=== PATIENT | female | born 1935 | race Caucasian/White ===

== ENCOUNTER 2024-04-13 04:17 | Emergency (ER) | payer OTHER ==
[~2024-04-13] VITALS: Ht 154.9 cm; Wt 49.0 kg
[2024-04-13] MEDS ORDERED: HYDROMORPHONE 1 MG/1 ML DISP.SYRIN ONE (04:43)
[2024-04-13] MEDS ORDERED: ONDANSETRON 4 MG/2 ML VIAL ONE (04:43)
[2024-04-13] MEDS: HYDROMORPHONE 1 MG/1 ML DISP.SYRIN IV ONE (04:57)
[2024-04-13] MEDS: ONDANSETRON 4 MG/2 ML VIAL IV ONE (04:57)
[2024-04-13 05:20] LABS: BASOPHILS % (AUTO) 0.2 % (0.0-2.0); EOSINOPHILS % (AUTO) 0.2 % (0.0-7.0); HEMATOCRIT 42.6 % (31.2-41.9); HEMOGLOBIN 14.8 g/dL (10.9-14.3); LYMPHOCYTES # (AUTO) 0.8 K/uL (0.8-4.8); LYMPHOCYTES % (AUTO) 5.8 % (20.5-51.5); MEAN CORPUSCULAR HEMOGLOBIN 31.4 uug (24.7-32.8); MEAN CORPUSCULAR HGB CONC 35 g/dL (32.3-35.6); MEAN CORPUSCULAR VOLUME 90.6 fL (75.5-95.3); MONOCYTES # (AUTO) 0.8 K/uL (0.1-1.30); MONOCYTES % (AUTO) 5.8 % (0.0-11.0); NEUTROPHILS # (AUTO) 12.7 K/uL (1.8-8.9); PLATELET COUNT (AUTO) 239 K/uL (179-408); WHITE BLOOD COUNT (AUTO) 14.5 K/uL (3.8-11.8)
[2024-04-13 05:30] LABS: CALCIUM 9.5 mg/dL (8.5-10.1); CARBON DIOXIDE 27 mmol/L (21-32); CHLORIDE 105 mmol/L (98-107); CREATININE 0.8 mg/dL (0.6-1.3); GLUCOSE 118 mg/dL (74-106); POTASSIUM 3.9 mmol/L (3.5-5.1); SODIUM SERUM 141 mmol/L (136-145); UREA NITROGEN, BLOOD 21 mg/dL (7-18)
[2024-04-13 05:35] LABS: DIFFERENTIAL COMMENT 1
[2024-04-13 05:43] LABS: ALANINE AMINOTRANSFERASE 44 U/L (14-59); ALBUMIN 3.8 g/dL (3.4-5.0); ALKALINE PHOSPHATASE 101 U/L (50-136); ASPARTATE AMINOTRANSFERASE 24 U/L (15-37); BILIRUBIN,DIRECT 0.1 mg/dL (0.0-0.2); BILIRUBIN,TOTAL 0.6 mg/dL (0.2-1.0); NT-PRO BNP 617 pg/mL (0-125)
[2024-04-13] MEDS ORDERED: MORPHINE SULFATE 2 MG/1 ML DISP.SYRIN ONE (06:59)
[2024-04-13] MEDS: MORPHINE SULFATE 2 MG/1 ML DISP.SYRIN IV ONE (07:02)
[2024-04-13 08:45] LABS: *BILIRUBIN,URIN NEGATIVE (NEGATIVE); *CLARITY,URINE CLEAR (CLEAR); *COLOR,URINE YELLOW (YELLOW); *KETONES,URINE NEGATIVE (NEGATIVE); *PROTEIN,URINE NEGATIVE (NEGATIVE); *UROBILINOGEN,URINE 0.2 E.U./dl (NORMAL); LEUKOCYTE ESTERASE ,URINE NEGATIVE (NEGATIVE); NITRITE, URINE NEGATIVE (NEGATIVE); UGLUCOSE NEGATIVE (NEGATIVE)
[2024-04-13 08:52] LABS: *BLOOD, URINE TRACE (NEGATIVE)
[2024-04-13 09:12] LABS: BACTERIA,URINE FEW /HPF (NONE SEEN); CALCIUM OXALATE CRYSTALS,UR FEW /HPF (NONE SEEN); RBC,URINE 0-3 /HPF (0-3); SQUAMOUS EPITHELIAL CELL,UR FEW /HPF (NONE SEEN); WBC,URINE 0-3 /HPF (0-3)
[2024-04-13] MEDS ORDERED: TRAM50TA2 PO (09:17)
[2024-04-13] MEDS ORDERED: ONDA4TAB11 PO (09:17)
[2024-04-13] MEDS ORDERED: ACETAMINOPHEN ES 500 MG TABLET ONE (09:24)
[2024-04-13] MEDS ORDERED: IBUPROFEN 400 MG TABLET ONE (09:24)
[2024-04-13] MEDS: IBUPROFEN 400 MG TABLET PO ONE (09:30)
[2024-04-13] MEDS: ACETAMINOPHEN ES 500 MG TABLET PO ONE (09:30)
[2024-04-13 09:51] VITALS: BP 155/72; O2SAT 97
== END 2024-04-13 09:52 | disposition home or self-care (01) ==
LOC: ER 04:22
DX: M54.9 Dorsalgia, unspecified (principal); I48.91 Unspecified atrial fibrillation; Z98.890 Other specified postprocedural states; Z79.899 Other long term (current) drug therapy; Z88.0 Allergy status to penicillin; Z20.822 Contact with and (suspected) exposure to COVID-19
CPT/HCPCS: 99285; 71250; 96374; 96375; 87426; 80076; 80048; 81001; 83880; 85025; 85730; 84484; 36415; 93005; 74176; J2405; J1170; J2270; A4606; A4663; A9150